=== PATIENT | female | born 1970 | race Caucasian/White ===

== ENCOUNTER 2019-07-03 22:00 | Emergency (ER) | payer SELFPAY ==
[~2019-07-03] VITALS: Ht 172.7 cm; Wt 72.7 kg
[2019-07-03 22:08] VITALS: Ht 172.7 cm; Wt 72.7 kg
[2019-07-03] MEDS ORDERED: HYDROCODON-ACE1 EAC7 PO (23:03)
[2019-07-03 23:05] VITALS: BP 139/90
== END 2019-07-03 23:05 | disposition home or self-care (01) ==
LOC: D.ER 22:00
DX: S51.012A Laceration without foreign body of left elbow, initial encounter (principal); W19.XXXA Unspecified fall, initial encounter; Y93.89 Activity, other specified; Y92.9 Unspecified place or not applicable; S50.02XA Contusion of left elbow, initial encounter; S63.502A Unspecified sprain of left wrist, initial encounter